=== PATIENT | male | born 1965 | race Caucasian/White ===

== ENCOUNTER → 2021-07-12 | Outpatient (CLI) | payer BC ==
[2021-07-12 14:58] LABS: BASOPHILS % (AUTO) 1 % (0-10); EOSINOPHILS # (AUTO) 0.1 10^3/uL (0.0-0.3); EOSINOPHILS % (AUTO) 2 % (0-10); HEMATOCRIT 42 % (40-54); HEMOGLOBIN 13.2 g/dL (13.3-17.7); LYMPHOCYTES # (AUTO) 1.9 10^3/uL (1.0-4.0); LYMPHOCYTES % (AUTO) 23 % (12-44); MEAN CORPUSCULAR HEMOGLOBIN 26 pg (25-34); MEAN CORPUSCULAR HGB CONC 31 g/dL (32-36); MEAN CORPUSCULAR VOLUME 83 fL (80-99); MEAN PLATELET VOLUME 10.3 fL (9.0-12.2); MONOCYTES # (AUTO) 0.8 10^3/uL (0.0-1.0); MONOCYTES % (AUTO) 9 % (0-12); NEUTROPHILS # (AUTO) 5.6 10^3/uL (1.8-7.8); NEUTROPHILS % (AUTO) 66 % (42-75); PLATELET COUNT 248 10^3/uL (130-400); WHITE BLOOD COUNT 8.4 10^3/uL (4.3-11.0)
[2021-07-12 15:18] LABS: INR 2.9 (0.8-1.4); PROTHROMBIN TIME PATIENT 31.2 SEC (12.2-14.7)
[2021-07-12 15:19] LABS: ALBUMIN 4.1 GM/DL (3.2-4.5); CHLORIDE 104 MMOL/L (98-107); SODIUM 138 MMOL/L (135-145)
[2021-07-12 15:20] LABS: CALCIUM 9.1 MG/DL (8.5-10.1)
[2021-07-12 15:21] LABS: GLUCOSE 93 MG/DL (70-105); TOTAL PROTEIN 7.5 GM/DL (6.4-8.2)
[2021-07-12 15:22] LABS: CARBON DIOXIDE 23 MMOL/L (21-32)
[2021-07-12 15:23] LABS: BILIRUBIN,TOTAL 0.5 MG/DL (0.1-1.0)
[2021-07-12 15:25] LABS: ALKALINE PHOSPHATASE 64 U/L (40-136); CREATININE SERUM 0.94 MG/DL (0.60-1.30); GFR ESTIMATED 97
[2021-07-12 15:26] LABS: BUN/CREATININE RATIO 12
[2021-07-12 15:28] LABS: ALANINE AMINOTRANSFERASE 57 U/L (0-55)
[2021-07-12 15:43] LABS: CREATINE KINASE MB 1.7 NG/ML (<6.6)
== END ==
LOC: LAB 14:17
PROVIDERS: ATTEND Physician Assistant
DX: R07.89 Other chest pain (principal); I48.92 Unspecified atrial flutter; I48.20 Chronic atrial fibrillation, unspecified; L03.115 Cellulitis of right lower limb; S80.11XD Contusion of right lower leg, subsequent encounter; K21.9 Gastro-esophageal reflux disease without esophagitis; M79.661 Pain in right lower leg; T14.8XXD Other injury of unspecified body region, subsequent encounter; Z79.01 Long term (current) use of anticoagulants
CPT/HCPCS: 36415; 80053; 82553; 83874; 84484; 85025; 85610